=== PATIENT | female | born 1940 | race Caucasian/White ===

== ENCOUNTER 2018-02-09 04:29 | Inpatient (IN) | payer OTHER ==
[~2018-02-09] VITALS: Ht 152.4 cm; Wt 64.0 kg
[2018-02-09] MEDS ORDERED: FUROSEMIDE 40 M40 M1 PO (04:32)
[2018-02-09] MEDS ORDERED: CARVEDILOL6.25 MG PO (04:32)
[2018-02-09] MEDS ORDERED: LEXAPRO 10 MG T10 M1 PO (04:32)
[2018-02-09] MEDS ORDERED: SYNTHROID125 MC1 PO (04:33)
[2018-02-09] MEDS ORDERED: KLOR-CON 1010 MEQ PO (04:33)
[2018-02-09] MEDS ORDERED: PROTONIX40 M1 PO (04:33)
[2018-02-09] MEDS ORDERED: SERTRALINE HCL25 MG PO (04:34)
[2018-02-09] MEDS ORDERED: PRAVACHOL40 MG PO (04:34)
[2018-02-09] MEDS ORDERED: REQUIP 1 MG TABL1 M1 PO (04:34)
[2018-02-09] MEDS ORDERED: COUMADIN 2 MG TA2 M1 PO (04:35)
[2018-02-09] MEDS ORDERED: TRAZODONE HCL50 MG PO (04:35)
[2018-02-09 04:36] VITALS: BP 146/84
[2018-02-09 06:10] LABS: HEMATOCRIT 30.8 % (37.0-47.0); MCH 27.2 pg (26.0-34.0); MCHC 32.4 g/dL (28.0-37.0); MPV 8.8 fl. (7.2-11.1); NUCLEATED RBCS 0 /100WBC; PLATELET COUNT* 290 thou/uL (150-400); RBC 3.67 mil/uL (4.20-5.00); RDW-CV 17.9 % (10.5-14.5); WBC 8.1 thou/uL (4.0-11.0)
[2018-02-09 06:15] VITALS: BP 149/79
[2018-02-09 06:24] LABS: PROTIME 70.8 Seconds (9.20-11.50)
[2018-02-09 06:26] LABS: CALCIUM 8.5 mg/dL (8.5-10.1); CREATININE 0.9 mg/dL (0.6-1.3); POTASSIUM 4.4 mmol/L (3.5-5.1)
[2018-02-09 06:27] LABS: INR 7.5
[2018-02-09 06:30] LABS: TOTAL BILIRUBIN 0.3 mg/dL (<0.1-1.0); TOTAL PROTEIN 6.1 g/dL (6.4-8.2)
[2018-02-09 06:49] LABS: ABSOLUTE BASOPHILS 0.1 thou/uL (0.0-0.2); ABSOLUTE EOSINOPHILS 0.1 thou/uL (0.0-0.7); ABSOLUTE LYMPHOCYTES 0.9 thou/uL (0.8-5.3); ABSOLUTE MONOCYTES 0.2 thou/uL (0.0-1.2); ABSOLUTE NEUTROPHILS 6.8 thou/uL (1.6-8.1); ANISOCYTOSIS 1+; PLATELET ESTIMATE ADEQUATE
--- NOTE | 2018-02-09 07:06 | NUR ---
noted left ankle swelling. dr called new orders for xray lt ankle
[2018-02-09 07:56] VITALS: BP 137/81
--- NOTE | 2018-02-09 08:00 | NUR ---
RECEIEVED REPORT. ASSUMED CARE OF PT AT 0730. VSS. PT MED-SURG STATUS. PT ALERT AND ORIETNED X 3. PT FORGETFUL. PT ON RA. IV SALINE LOCKED. PT REPORTS LEFT SIDE RIB PAIN, BACK PAIN, AND LEFT LEG PAIN. PT GIVEN PRN HYDROCODONE. LEFT LE NOTED TO HAVE REDNESS AND 2+ EDEMA. PT DOES REPORT HX OF CELLULITIS IN THIS LEG. PT REPORTS SHE DOES NOT AMBULATE AT HOME USES W/C. MED REC COMPLETED BY THIS RN. PT INFORMED OF PLAN OF CARE. FALL PRECATIONS IN PLACE. CALL LIGHT IS WITHIN REACH. WILL CONTINUE TO MONITOR FOR DURAITON OF SHFIT.
--- NOTE | 2018-02-09 15:50 | NUR ---
MET WITH PT TO DISCUSS HOME SITUATION/DC PLANNING. PT DROWSY, STATES SHE LIVES IN A SENIOR CARE AND USES A W/C. PER CHART, PT IS FROM [facility] [place]. CALL TO [facility], SPOKE WITH ARIE. SHE STATED PT HAS BEEN THERE SINCE January AND HAS HAD MORE THAN ONE FALL. PT DID AMBULATE SOME WHEN FIRST ARRIVED BUT HAS BEEN USING W/C MOSTLY NOW. ARIE VOICED CONCERN PT MAY NEED HIGHER LEVEL OF CARE. WILL CONTACT BRITTNY/UMA TO DISCUSS
[2018-02-09 15:55] VITALS: BP 125/71
--- NOTE | 2018-02-09 17:14 | NUR ---
VSS. PT MED-SURG STATUS. PT PROGRESSING TOWARDS GOALS. PT REMAINS ALERT AND OREINTED X3 AND FORGETFUL. PT REMAINS ON RA. IV SALINE LOCKED. PT'S PAIN BETTER MANAGED WITH OXY IR. PT SLEP MAJORITY OF AFTERNOON. PT UP TO EDGE OF BED FOR MEALS. PT HAS LEFT SIDED WEAKNESS FOR HX OF CVA. PT INFORMED OF PLAN OF CARE. CALL LIGHT IS WITHIN REACH. WILL CONTINUE TO MONITOR FOR DURAITON OF SHIFT.
[2018-02-09 20:00] VITALS: BP 124/64
[2018-02-09 20:46] LABS: % SATURATION 4 % (20-39); IRON 15 ug/dL (50-175)
[2018-02-10 00:20] VITALS: BP 121/45
--- NOTE | 2018-02-10 02:56 | NUR ---
RESTING IN BED. PAIN MEDS AT HS. PATIENT HAS BEEN SLEEPING MOST OF NIGHT. TURN EVERY 2 HOURS. NO SIGN OF DISTRES. CALL LIGHT IN REACH, BED IN LOW POSITION, BED ALARM ON. CONT. WITH PLAN OF CARE.
[2018-02-10 04:21] LABS: PROTIME 76.9 Seconds (9.20-11.50)
[2018-02-10 04:26] LABS: CALCIUM 8.1 mg/dL (8.5-10.1); CREATININE 0.9 mg/dL (0.6-1.3); POTASSIUM 3.8 mmol/L (3.5-5.1)
[2018-02-10 04:32] LABS: HEMATOCRIT 29.4 % (37.0-47.0); HEMOGLOBIN 9.5 gm/dL (12.0-15.0); MCH 27.2 pg (26.0-34.0); MCHC 32.2 g/dL (28.0-37.0); MCV 84.3 fL (80.0-100.0); MPV 9.5 fl. (7.2-11.1); RBC 3.49 mil/uL (4.20-5.00); RDW-CV 18.2 % (10.5-14.5); WBC 7.5 thou/uL (4.0-11.0)
[2018-02-10 05:04] LABS: INR 8.2
--- NOTE | 2018-02-10 06:43 | NUR ---
WEB PAGE TO DR MARIANO FOR INR OF 8.2
[2018-02-10 08:00] VITALS: BP 134/62
--- NOTE | 2018-02-10 11:10 | NUR ---
Following through dc. Spoke with Pt's DPDARREL/lynn Estevez. KEN voiced concern about Pt's ability to return to [facility], she believes that Pt will need a higher level of care. CM discussed options that are near [place], [facility], [facility] and [facility]. CM spoke with Maciej at [facility], they will not have a skilled bed until Wednesday and do not currently have a female LTC bed. EVELYN spoke with Shanice at [facility], they only have 2 bedroom units available that run $4000+/month. EVELYN spoke with Madiha at [facility], they have skilled beds and have a female LTC bed on their memory care unit. Madiha informed that their memory care unit is more conducive for Pt's that require less stimulation, which could be helpful to Pt. EVELYN spoke with [facility], they have both skilled and LTC available also. Faxed referrals to [facility] and [facility]. KEN to try and tour all 3 facilities this evening. KEN is open to any facility, but would like to try and keep her as close to [place] as possible. Anticipate dc within the next few days. Following.
--- NOTE | 2018-02-10 11:32 | NUR ---
ASSUMED PT CARE AT 0730, FULL ASSESMENT DONE CHARTED. PT A/O X4, IS VERY DROWSY AND CONFUSED AT TIMES. PT MOANING IN PAIN, VERY FIDGETY, HAS BRUISE TO LEFT FLANK OVER RIBS, LEFT ARM AND LEFT LEG PT IS NOT ABLE TO USE 100%. 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 LLE SWOLLEN WITH SOME REDNESS TO CALF AREA. PT GIVEN VIT K FOR INR. VSS, O2 SAT 99% ON RA. FALL PRECATUIONS IN PLACE, CALL LIGHT IN REACH. WILL CONTINUE WITH PLAN OF CARE.
--- NOTE | 2018-02-10 14:49 | NUR ---
PT UP TO CHAIR WITH THERAPY, RESTLESS AND LEANING FORWARD FALLING ASLLEEP, PT ASKED TO RETURN TO BED FOR SAFTY, PT REFUSING AND BEGAN ARGUING, PT STATES "GET AWAY FROM ME" TO STAFF, AFTER STAFF MOVED, PT CONTINUED TO SAY "STAY AWAY FROM ME" WHEN QUESTIONED SHE STATES THERE IS LARGE MAN BEHIND HER, WHEN NO ONE WAS THERE. PT REFUSING TO TAKE MEDS, BEGAN TO BE COMBATIVE. SHE ATTEMPTED TO KICK, HIT AND BITE STAFF. PT WAS ABLE TO TAKE PAIN MEDS THAT HELPED CALM HER FOR CT SCAN. ON RETURN PT AGAIN WAS COMBATIVE WHEN ATTEMPTING TO HURT STAFF. MESSAGE SENT TO DR KELLER, NO NEW ORDERS AT THIS TIME. PT BEING OBSERVED 1:1 AT THIS TIME FOR SAFTY.
[2018-02-10 16:57] VITALS: BP 134/73
[2018-02-10 18:03] LABS: PROTIME 58.6 Seconds (9.20-11.50)
[2018-02-10 18:10] LABS: INR 6.2
[2018-02-10 20:00] VITALS: BP 140/71
--- NOTE | 2018-02-10 20:11 | NUR ---
PT DOING BETTER THIS EVENING, STILL PARANOID, BUT WAS ABLE TO TAKE A PAIN MEDS AND IV ABX. HER DIL(DPOA) WAS HERE, CONFIRMED PT IS DNR, PROVIDED WITH HEALTH CARE DIRECTIVE COPY. PT CHECKED ON FREQUENTLY. BED ALARM ON, IN LOWEST POSITION. FALL PRECATUIONS IN PLACE, CALL LIGHT IN REACH. REPORT GIVEN TO BAKARI PERALES
[2018-02-11] VITALS: BP 141/92
--- NOTE | 2018-02-11 02:58 | NUR ---
ASSUMED PT CARE AT 1930, PT IS AWAKE AND ALERT TO SELF. PT IS VERY CONFUSED AND DELUSIONAL. PT STATES SHE IS SEEING A MAN WALK INTO HER ROOM, HE IS TALL AND HAS DARK HAIR AND A DERAS. PT STATES HIS NAME IS "SANTY OR CHRISTEN" AND HE IS TRYING TO POSION HER. PT HAS EPISODES OF NON DELUSION, WHERE SHE REMEMBERS ME, AND ALLOWS ME TO TAKE VITALS AND GIVE HER PO MEDICATIONS AT THE START OF SHIFT. AT OO THIS RN WENT IN TO GIVE HER IV VANC. PT WAS VERY PARANOID AND SCARED, AND IS REFUSING THIS RN TO MALE MODEL HER MEDICATION DESPITE EDUCATION, PT WON'T EVEN ALLOW THIS RN TO VISUALIZE HER IV SITE. PT STATES I AM WORKING WITH THE MAN THAT KEEPS COMING IN HER ROOM, AND I AM NOT A REAL NURSE, AND WE ARE ALL JUST TRYING TO POSION HER. BED IN LOW POSITION, CALL LIGHT IN REACH, BED ALARM ON, YELLOW ARM BAND AND SOCKS IN PLACE. HOURLY ROUNDING COMPLETED FOR PT SAFETY.
[2018-02-11 05:39] LABS: ABSOLUTE EOSINOPHILS 0.1 thou/uL (0.0-0.7); ABSOLUTE LYMPHOCYTES 0.8 thou/uL (0.8-5.3); ABSOLUTE MONOCYTES 0.6 thou/uL (0.0-1.2); ABSOLUTE NEUTROPHILS 7.1 thou/uL (1.6-8.1); BASOPHILS 0.4 %; EOSINOPHILS 0.9 %; HEMATOCRIT 31.2 % (37.0-47.0); MCHC 32.2 g/dL (28.0-37.0); MONOCYTES 7.4 %; MPV 9.3 fl. (7.2-11.1); NUCLEATED RBCS 0 /100WBC; PLATELET COUNT* 271 thou/uL (150-400); POLYS 82.3 %; RBC 3.71 mil/uL (4.20-5.00); RDW-CV 18.1 % (10.5-14.5); WBC 8.6 thou/uL (4.0-11.0)
[2018-02-11 05:53] LABS: PROTIME 25.4 Seconds (9.20-11.50)
[2018-02-11 06:30] LABS: INR 2.6
[2018-02-11 06:42] LABS: ALBUMIN 2.9 g/dL (3.4-5.0); CALCIUM 8.3 mg/dL (8.5-10.1); CREATININE 0.9 mg/dL (0.6-1.3); POTASSIUM 3.8 mmol/L (3.5-5.1); TOTAL BILIRUBIN 0.5 mg/dL (<0.1-1.0); TOTAL PROTEIN 5.6 g/dL (6.4-8.2)
[2018-02-11 08:00] VITALS: BP 159/81
--- NOTE | 2018-02-11 10:49 | NUR ---
Spoke with Dr Law, do not anticipate weekend dc. Spoke with Anne at [facility], she informed that DPOA will tour the facility this evening. Spoke with Madiha at [facility], they should be able to accept, she will reach out to [facility] regarding touring. Anticipate dc early next week. Following.
--- NOTE | 2018-02-11 18:58 | NUR ---
PATIENT LAYING IN BED C/O PAIN L KNEE REFUSED PAIN MEDICATION CALL LIGHT IN REACH AND INSTRUCTION GIVEN AND FOLLOWED BED ALARM ON
[2018-02-12 04:00] VITALS: BP 123/81
--- NOTE | 2018-02-12 04:55 | NUR ---
ASSUMED CARE OF PATIENT AT 1900 THE PATIENT REMAINS MED SURG STATUS NO LONGER MONITORED ON TELEPACK O2 SAT MAINTAINED ON 1L NC FOR COMFORT PATIENT COMPLAINED OF SOA AT SHIFT START POST EXERTION REPOSITIONING IN BED CONTINUES TO BE UP WITH ASSIST OF 1-2 TO THE BSC THE ROUTINE ET PRN REGIMEN CONTINUES TO BE EFFECTIVE FOR SX MANAGEMENT PATIENT PROGRESSING TOWARDS GOALS SAFETY INTERVENTIONS CONTINUE BED LOWERED WHEELS LOCKED CALL LIGHT IN REACH SIDE RAILS UP REPORT TO BE GIVEN TO NILS PERALES
[2018-02-12 05:37] LABS: ABSOLUTE EOSINOPHILS 0.1 thou/uL (0.0-0.7); ABSOLUTE LYMPHOCYTES 0.7 thou/uL (0.8-5.3); ABSOLUTE MONOCYTES 0.6 thou/uL (0.0-1.2); ABSOLUTE NEUTROPHILS 4.4 thou/uL (1.6-8.1); BASOPHILS 0.5 %; EOSINOPHILS 1.4 %; HEMATOCRIT 27.2 % (37.0-47.0); HEMOGLOBIN 8.6 gm/dL (12.0-15.0); LYMPHOCYTES 11.8 %; MCH 26.8 pg (26.0-34.0); MCHC 31.7 g/dL (28.0-37.0); MCV 84.5 fL (80.0-100.0); MONOCYTES 9.8 %; MPV 9.3 fl. (7.2-11.1); NUCLEATED RBCS 0 /100WBC; PLATELET COUNT* 223 thou/uL (150-400); POLYS 76.5 %; RBC 3.22 mil/uL (4.20-5.00); WBC 5.8 thou/uL (4.0-11.0)
[2018-02-12 05:48] LABS: INR 1.4; PROTIME 13.9 Seconds (9.20-11.50)
[2018-02-12 05:52] LABS: CALCIUM 8.3 mg/dL (8.5-10.1); CREATININE 0.7 mg/dL (0.6-1.3); POTASSIUM 3.7 mmol/L (3.5-5.1)
[2018-02-12 08:20] VITALS: BP 111/63
--- NOTE | 2018-02-12 10:34 | NUR ---
SPOKE WITH KEN,UMA SAUCEDO. SHE SAID SHE WAS ABLE TO TOUR FACILITIES AND SHE WOULD LIKE [facility] FOR HER M[facility]. WILL NOTIFY [facility] ON WEDNESDAY SO SHE CAN START AUTHORIZATION FROM INSURANCE.
--- NOTE | 2018-02-12 10:50 | NUR ---
RECIEVED REPORT FROM SHELLY AND ASSUMED CARE OF PT @ 0901. PT IS A/O X4 WITH CONFUSED MOMENTS,VSS,MED-SURG STATUS, LUNGS SOUND CLEAR ON 1L O2 FOR PT COMFORT SAT @ 96%. IV LEFT WRIST SALINE LOCKED. PT IS CALM AND COOPERATIVE. PT HAS PAIN IN LEFT SIDE RIBS AND LEFT LEG.MEDICATION AND REPOSITION WERE GIVEN WITH PARTIAL RELIEF. PT IS UP WITH 1-2 TO THE BSC. PT LEFT RESTING IN BED WITH FALL PRECAUTIONS AND CALL LIGHT IN PLACE. WILL CONTINUE TO MONITOR.
[2018-02-12 16:00] VITALS: BP 121/62
--- NOTE | 2018-02-12 17:30 | NUR ---
IV VANC WAS STARTED ON PT AND PT STARTED C/O ITCHING IN THE ARM THAT IV WAS INFUSING. INFUSION STOPPED AND NOTIFIED DOCTOR.WILL CONTINUE TO MONITOR.
--- NOTE | 2018-02-12 18:47 | NUR ---
ORDERED ONETIME DOSE OF BENADRYL AND LEVOQUIN INSTEAD OF VANC UNTIL TOMORROW WHEN DR. VAIL CAN CHANGE VANC ORDER-DUE TO ITCHING IN ARM. PT WAS UP IN CHAIR AND BSC MULTIPLE TIMES DURING SHIFT. PT WORKED WITH PT/OT.PT IS RESTING IN BED WITH FALL PRECAUTIONS AND CALL LIGHT IN PLACE. HOURLY ROUNDING COMPLETED FOR PT SAFETY. PAIN MEDICATION GIVEN TO RELIEVE PAIN.
[2018-02-12 20:00] VITALS: BP 116/51
[2018-02-13 04:00] VITALS: BP 137/67
--- NOTE | 2018-02-13 04:57 | NUR ---
ASSUMED CARE OF PATIENT AT 1900 THE PATIENT REMAINS MED SURG STATUS NOT MONITORED ON TELEPACK O2 SAT MAINTAINED ON 1LNC CONTINUES TO BE UP WITH ASSIST OF 1-2 TO THE BSC ROUTINE REGIMEN CONTINUES TO BE EFFECTIVE FOR SX MANAGEMENT PATIENT PROGRESSING TOWARDS GOALS PATIENT MENTATION IMPROVED DURING SHIFT AT APPROX 0230 THE PATIENT APPEARED TO BE FULLY A&O WITHOUT PARANOIA,HALLUCINATIONS,OR AGITATION NOTED SAFETY INTERVENTIONS CONTINUE BED LOWERED WHEELS LOCKED CALL LIGHT IN REACH SIDE RAILS UP REPORT TO BE GIVEN TO ONCOMING RN
[2018-02-13 05:36] LABS: HEMATOCRIT 31.2 % (37.0-47.0); HEMOGLOBIN 9.8 gm/dL (12.0-15.0); MCH 26.6 pg (26.0-34.0); MCHC 31.4 g/dL (28.0-37.0); MCV 84.7 fL (80.0-100.0); MPV 9.5 fl. (7.2-11.1); RBC 3.68 mil/uL (4.20-5.00); RDW-CV 18.4 % (10.5-14.5); WBC 7.3 thou/uL (4.0-11.0)
[2018-02-13 05:51] LABS: INR 1.5; PROTIME 14.2 Seconds (9.20-11.50)
[2018-02-13 06:05] LABS: CALCIUM 8.6 mg/dL (8.5-10.1); CREATININE 0.7 mg/dL (0.6-1.3); MAGNESIUM 1.6 mg/dL (1.8-2.4); POTASSIUM 4.4 mmol/L (3.5-5.1)
[2018-02-13 08:00] VITALS: BP 145/82
--- NOTE | 2018-02-13 15:41 | NUR ---
ASSUMED CARE OF PATIENT THIS AM AT 0730. PATIENT IS CONFUSED AND DISORIENTED TO PLACE, TIME AND SITUATION. PATIENT REORIENTED THROUGHOUT THE DAY. HER APPETITE HAS BEEN POOR TODAY. DR IN TO ROUND AND NO CHANGES NOTED IN PATIENT'S. NO FALLS OR INJURY. PATIENT MEDICATED FOR C/O PAIN X 1 PO. SLEEPING OFF AND ON THROUGOUT THE DAY.
[2018-02-13 16:20] VITALS: BP 144/65
[2018-02-13 20:00] VITALS: BP 131/72
[2018-02-14] VITALS: BP 132/68
--- NOTE | 2018-02-14 05:38 | NUR ---
ASSUMED CARE OF PT AT 1930, NURSING ASSESSMENT COMPLETED AT START OF SHIFT, PT ORIENTED TO SELF ONLY. PT OBSERVED TO HAVE HALLUCINATIONS THIS SHIFT, PT STATED THERE WERE CATS AND DOGS IN HER ROOM, CLAIMED SHE LOST THE CAP TO HER CHAPSTICK, WHEN CAP WAS IN PLACE. PT AWAKE THROUGHT THE NIGHT, HOURLY ROUNDING COMPLETED, CALL LIGHT WITHIN REACH. NO FALLS THIS SHIFT. FALL PRECAUTIONS IN PLACE.
[2018-02-14 05:39] LABS: INR 1.9; PROTIME 18.6 Seconds (9.20-11.50)
[2018-02-14 08:00] VITALS: BP 146/73
--- NOTE | 2018-02-14 09:26 | NUR ---
Spoke with Zaira at [facility], asked that she initiate insurance auth. Faxed therapy notes, asked therapy to see Pt today, so that CM can fax updated notes. Anticipate dc today, if ins auth obtained. Following.
--- NOTE | 2018-02-14 11:37 | NUR ---
Pt is discharging to [facility] today, facility to [facility] at 3pm. Updated Pt's DIL/DPOA. Faxed dc orders. Chart copied. Nurse report number provided, .
[2018-02-14 12:00] VITALS: BP 132/74
[2018-02-14] MEDS ORDERED: LIDODERM1 EACH TOP (13:06)
[2018-02-14] MEDS ORDERED: ULTRAM 50MG TAB50 MG PO (13:07)
--- NOTE | 2018-02-14 18:18 | NUR ---
ORDER RECEIVED TO DISCHARGE PATIENTR TO [facility]. MED REC, MEDICATION EDUCATION, STROKE EDUCATION, AND NEED FOR FOLLOW UP CARE DISCUSSED AND STATED UNDERSTOOD BY PATIENT. REPORT CALLED TO [facility]. IV AND TELEMTRY PACK REOMVED AND BAILEY ASSISTED WITH DRESSING. TRANSPORTATION ARRIVED AND TOOK PATIENT [facility] WHEELCHAIR TO FACILITY. HOURLY ROUNDING COMPLETED FOR PATIENT SAFETY. DC TIME OF 15:05.
== END 2018-02-14 15:00 | DRG 183 ==
LOC: M.ERS 04:29 → M.2W 05:30 → M.TBA-ER 05:30 → M.2W 05:45
PROVIDERS: Emergency Medicine; Internal Medicine; ADMIT Internal Medicine
DX: S22.42XA Multiple fractures of ribs, left side, initial encounter for closed fracture (principal); G93.40 Encephalopathy, unspecified; I50.9 Heart failure, unspecified; F32.9 Major depressive disorder, single episode, unspecified; J44.9 Chronic obstructive pulmonary disease, unspecified; I48.91 Unspecified atrial fibrillation; E03.9 Hypothyroidism, unspecified; E78.5 Hyperlipidemia, unspecified; I10 Essential (primary) hypertension; K21.9 Gastro-esophageal reflux disease without esophagitis; Z79.01 Long term (current) use of anticoagulants; Z87.891 Personal history of nicotine dependence; Z79.899 Other long term (current) drug therapy; W18.39XA Other fall on same level, initial encounter; Y93.89 Activity, other specified; Y92.89 Other specified places as the place of occurrence of the external cause; Y99.8 Other external cause status

== ENCOUNTER 2018-02-17 05:54 | Inpatient (IN) | payer OTHER ==
[~2018-02-17] VITALS: Ht 154.9 cm; Wt 76.7 kg
[2018-02-17 05:54] VITALS: BP 123/100
[~2018-02-17 05:54] MED LIST: CARVEDILOL6.25 MG PO; COUMADIN 2 MG TA2 M1 PO; FUROSEMIDE 40 M40 M1 PO; KLOR-CON 1010 MEQ PO; LEXAPRO 10 MG T10 M1 PO; LIDODERM1 EACH TOP; PRAVACHOL40 MG PO; PROTONIX40 M1 PO; REQUIP 1 MG TABL1 M1 PO; SERTRALINE HCL25 MG PO; SYNTHROID125 MC1 PO; TRAZODONE HCL50 MG PO; ULTRAM 50MG TAB50 MG PO
[2018-02-17] MEDS ORDERED: ZOFRAN ODT4 M1 PO (06:04)
[2018-02-17] MEDS ORDERED: PEPCID20 MG PO (06:05)
[2018-02-17] MEDS ORDERED: SYNTHROID150 MCG PO (06:06)
[2018-02-17 06:10] LABS: HEMATOCRIT 32.5 % (37.0-47.0); MCH 26.6 pg (26.0-34.0); MCHC 30.9 g/dL (28.0-37.0); MCV 86.3 fL (80.0-100.0); MPV 9.8 fl. (7.2-11.1); NUCLEATED RBCS 0 /100WBC; PLATELET COUNT* 256 thou/uL (150-400); RBC 3.76 mil/uL (4.20-5.00); RDW-CV 18.8 % (10.5-14.5); WBC 17.1 thou/uL (4.0-11.0)
[2018-02-17 06:17] LABS: CALCIUM 7.4 mg/dL (8.5-10.1)
[2018-02-17 06:20] LABS: PROTIME 63.8 Seconds (9.20-11.50)
[2018-02-17 06:22] LABS: INR 6.8
[2018-02-17 06:28] LABS: ALBUMIN 2.1 g/dL (3.4-5.0); TOTAL BILIRUBIN 1.2 mg/dL (<0.1-1.0); TOTAL PROTEIN 4.5 g/dL (6.4-8.2)
[2018-02-17 06:30] LABS: ABSOLUTE MONOCYTES 0.7 thou/uL (0.0-1.2); ABSOLUTE NEUTROPHILS 15.4 thou/uL (1.6-8.1); ANISOCYTOSIS 1+; PLATELET ESTIMATE ADEQUATE; POLYCHROMASIA 1+; TROPONIN-I LEVEL 1.13 ng/mL (<0.06)
[2018-02-17 07:40] VITALS: BP 56/30
--- NOTE | 2018-02-17 09:46 | EKG ---
[place] [address] ELECTROCARDIOGRAM REPORT Name: JONATAN LOPEZ Room: [address] IN [facility]#: [id number] Admission: 02/17/18 Attend Phys: Rosendo Law MD Discharge: Date of : 42 Report #: [id number] THIS REPORT FOR: //name// [facility] ED Test Date: 2018-02-17 Test Time: 06:00:08 Pat Name: JONATAN LOPEZ Department: Room: [facility] Gender: F Interactive Account Manager: : 1940 Requested By: Alecia Montanez Order Number: [id number] MD: Jarocho Ayala Measurements Intervals [place] Rate: 89 P: 0 [place]: 168 QRS: -79 QRSD: 138 T: 99 QT: 413 QTc: 503 Interpretive Statements Ventricular-paced complexes pvc No further analysis attempted due to paced rhythm No previous ECG available for comparison Electronically Signed On 02-17-2018 9:46:27 CDT by Jarocho Ayala [email or web address] <ELECTRONICALLY SIGNED> By: Jarocho Ayala MD, [facility] [phone] Jarocho Ayala MD, [facility] /EPI
== END 2018-02-17 11:35 | DRG 871 ==
LOC: M.ERS 05:54 → M.3W 07:14 → M.TBA-ER 07:14 → M.3W 07:55
PROVIDERS: Emergency Medicine; ADMIT Internal Medicine
DX: A41.9 Sepsis, unspecified organism (principal); G93.40 Encephalopathy, unspecified; I21.4 Non-ST elevation (NSTEMI) myocardial infarction; R65.21 Severe sepsis with septic shock; J93.83 Other pneumothorax; E87.2 Acidosis; R57.0 Cardiogenic shock; J44.9 Chronic obstructive pulmonary disease, unspecified; I50.9 Heart failure, unspecified; I48.91 Unspecified atrial fibrillation; F32.9 Major depressive disorder, single episode, unspecified; I10 Essential (primary) hypertension; Z51.5 Encounter for palliative care; F17.210 Nicotine dependence, cigarettes, uncomplicated; Z66 Do not resuscitate; Z88.0 Allergy status to penicillin; Z95.0 Presence of cardiac pacemaker; Z86.73 Personal history of transient ischemic attack (TIA), and cerebral infarction without residual deficits